=== PATIENT | female | born 1980 | race Caucasian/White ===

== ENCOUNTER 2019-07-09 13:13 | Emergency (ER) | payer OTHER ==
[~2019-07-09] VITALS: Ht 172.7 cm; Wt 65.8 kg
[~2019-07-09 13:13] MED LIST: MEDROL DOSEPAK4 MG PO; ROBAXIN-750750 MG PO
[2019-07-09 13:38] LABS: BASO % 0.4 % (0.0-1.0); EOS # 0.1 10*3/uL (0.0-0.4); HEMATOCRIT 44.8 % (37.0-47.0); HEMOGLOBIN 14.8 g/dl (12.0-16.0); LYMPH # 2.1 10*3/uL (1.3-4.4); MEAN CELL VOLUME 84.1 fl (81.0-99.0); MEAN CORPUSCULAR HGB 27.8 pg (27.0-31.0); MEAN PLATELET VOLUME 11.7 fl (9.6-12.3); MONO # 0.6 10*3/uL (0.1-1.0); MONO % 5.1 % (3.0-9.0); NEUT # 8.1 10*3/uL (2.3-7.9); PLATELET COUNT AUTOMATED 274 10*3/uL (130-400); RED BLOOD COUNT 5.33 10*6/uL (4.10-5.10); WHITE BLOOD COUNT 10.9 10*3/uL (4.8-10.8)
[2019-07-09 13:49] LABS: ACT PARTIAL THROMBO TIME 25.7 SECONDS (20.0-32.1); INTERNATIONAL NORM RATIO 0.9 (2.0-3.5)
[2019-07-09 13:52] LABS: ALBUMIN 3.9 gm/dl (3.1-4.5); ALKALINE PHOSPHATASE 115 U/L (45-117); BUN 15 mg/dl (7-24); CHLORIDE 109 mmol/L (98-107); CREATININE 0.89 mg/dL (0.55-1.02); POTASSIUM 3.9 mmol/L (3.5-5.1); SGOT/AST 15 IU/L (3-35); SGPT/ALT 43 U/L (12-78); SODIUM 139 mmol/L (136-145)
[2019-07-09 13:55] LABS: TROPONIN I < 0.015 ng/ml (<0.045)
[2019-07-09] MEDS ORDERED: NAPROSYN500 MG PO (15:47)
[2019-07-09] MEDS ORDERED: PREDNISONE20 M1 PO (15:47)
[2019-07-09] MEDS ORDERED: AMOXICILLIN500 M2 PO (15:47)
== END 2019-07-09 15:54 | disposition home or self-care (01) ==
LOC: ED 13:13
PROVIDERS: Emergency Medicine
DX: J20.9 Acute bronchitis, unspecified (principal); K02.9 Dental caries, unspecified; F17.200 Nicotine dependence, unspecified, uncomplicated; I11.0 Hypertensive heart disease with heart failure; I50.9 Heart failure, unspecified; Z88.8 Allergy status to other drugs, medicaments and biological substances; Z88.6 Allergy status to analgesic agent; Z91.048 Other nonmedicinal substance allergy status; Z79.899 Other long term (current) drug therapy

== ENCOUNTER 2020-06-08 11:28 | Emergency (ER) | payer SELFPAY ==
[~2020-06-08] VITALS: Wt 70.3 kg
[~2020-06-08 11:28] MED LIST changes: +AMOXICILLIN500 M2 PO; +NAPROSYN500 MG PO; +PREDNISONE20 M1 PO
[2020-06-08] MEDS ORDERED: ROBAXIN-750750 MG PO (13:14)
[2020-06-08] MEDS ORDERED: IBUPROFEN600 MG PO (13:14)
== END 2020-06-08 14:48 | disposition home or self-care (01) ==
LOC: ED 11:28
DX: S13.4XXA Sprain of ligaments of cervical spine, initial encounter (principal); S00.03XA Contusion of scalp, initial encounter; Z88.8 Allergy status to other drugs, medicaments and biological substances; Z88.6 Allergy status to analgesic agent; Y08.89XA Assault by other specified means, initial encounter; Y93.89 Activity, other specified; Y92.89 Other specified places as the place of occurrence of the external cause; Y99.8 Other external cause status

== ENCOUNTER 2021-07-03 19:12 | Emergency (ER) | payer OTHER ==
[~2021-07-03] VITALS: Ht 157.4 cm; Wt 77.1 kg
[~2021-07-03 19:12] MED LIST changes: +IBUPROFEN600 MG PO
[2021-07-03] MEDS ORDERED: METHOCARBAMOL500 M1 PO (21:37)
[2021-07-03] MEDS ORDERED: NAPROXEN250 MG PO (21:37)
== END 2021-07-03 21:53 | disposition home or self-care (01) ==
LOC: ED 19:12
DX: S39.012A Strain of muscle, fascia and tendon of lower back, initial encounter (principal); S80.11XA Contusion of right lower leg, initial encounter; M25.532 Pain in left wrist; Z88.8 Allergy status to other drugs, medicaments and biological substances; Z88.6 Allergy status to analgesic agent; Z90.89 Acquired absence of other organs; W17.89XA Other fall from one level to another, initial encounter; Y93.89 Activity, other specified; Y92.89 Other specified places as the place of occurrence of the external cause; Y99.8 Other external cause status

== ENCOUNTER 2021-11-26 20:46 | Emergency (ER) | payer OTHER ==
[~2021-11-26 20:46] MED LIST changes: +METHOCARBAMOL500 M1 PO; +NAPROXEN250 MG PO
[2021-11-26] MEDS ORDERED: CARVEDILOL25 MG PO (21:24)
[2021-11-26] MEDS ORDERED: HYDROXYZINE PAM25 M1 PO (21:25)
[2021-11-26] MEDS ORDERED: OMEPRAZOLE MAGN20 MG PO (21:25)
[2021-11-26] MEDS ORDERED: AMOXICILLIN875 MG PO (21:40)
== END 2021-11-26 21:50 | disposition home or self-care (01) ==
LOC: ED 20:46
DX: J02.9 Acute pharyngitis, unspecified (principal); Z88.6 Allergy status to analgesic agent; Z88.8 Allergy status to other drugs, medicaments and biological substances; Z79.899 Other long term (current) drug therapy; Z90.89 Acquired absence of other organs; F17.200 Nicotine dependence, unspecified, uncomplicated

== ENCOUNTER 2022-03-31 17:22 | Emergency (ER) | payer OTHER ==
[~2022-03-31] VITALS: Ht 157.4 cm; Wt 77.1 kg
[~2022-03-31 17:22] MED LIST changes: +AMOXICILLIN875 MG PO; +CARVEDILOL25 MG PO; +HYDROXYZINE PAM25 M1 PO; +OMEPRAZOLE MAGN20 MG PO
[2022-03-31 18:27] LABS: BASO # 0.1 10*3/uL (0.0-0.1); BASO % 0.7 % (0.0-1.0); EOS # 0.2 10*3/uL (0.0-0.4); EOS % 2.5 % (1.0-4.0); HEMATOCRIT 40.3 % (37.0-47.0); LYMPH # 3.1 10*3/uL (1.3-4.4); LYMPH % 31.7 % (27.0-41.0); MEAN CELL VOLUME 86.3 fl (81.0-99.0); MEAN CORPUSCULAR HGB 27.8 pg (27.0-31.0); MEAN CORPUSCULAR HGB CONC 32.3 g/dl (33.0-37.0); MEAN PLATELET VOLUME 11.7 fl (9.6-12.3); MONO # 0.7 10*3/uL (0.1-1.0); MONO % 6.8 % (3.0-9.0); NEUT # 5.6 10*3/uL (2.3-7.9); NEUT % 58.1 % (47.0-73.0); PLATELET COUNT AUTOMATED 266 10*3/uL (130-400); RED BLOOD COUNT 4.67 10*6/uL (4.10-5.10); RED CELL DISTRI WIDTH 14.2 % (0-14.5); WHITE BLOOD COUNT 9.6 10*3/uL (4.8-10.8)
[2022-03-31 18:35] LABS: BILIRUBIN Negative (Negative); BLOOD 3+ (Negative); CLARITY Clear (Clear); COLOR Yellow (Yellow); GLUCOSE Negative (Negative); KETONE Negative (Negative); LEUKO ESTERASE 3+ (Negative); NITRITE Negative (Negative); PH 5.5 (4.5-8.0); UROBILINOGEN 0.2 E.U./dl (0.0-1.0)
[2022-03-31 18:40] LABS: INTERNATIONAL NORM RATIO 0.9 (2.0-3.5)
[2022-03-31 18:46] LABS: ALKALINE PHOSPHATASE 106 U/L (45-117); BUN 16 mg/dl (7-24); CHLORIDE 108 mmol/L (98-107); CREATININE 0.96 mg/dL (0.55-1.02); POTASSIUM 4.2 mmol/L (3.5-5.1); SGOT/AST 11 IU/L (3-35); SGPT/ALT 22 U/L (12-78); SODIUM 140 mmol/L (136-145)
[2022-03-31 19:06] LABS: BACTERIA 2+; EPITHELIAL CELLS TNTC
[2022-03-31] MEDS ORDERED: AMOX-CLAV 875-1 EACH PO (19:59)
== END 2022-03-31 20:07 | disposition home or self-care (01) ==
LOC: ED 17:22
PROVIDERS: Physician Assistant
DX: N39.0 Urinary tract infection, site not specified (principal); A59.9 Trichomoniasis, unspecified; I50.9 Heart failure, unspecified; Z88.6 Allergy status to analgesic agent; Z88.8 Allergy status to other drugs, medicaments and biological substances; Z79.2 Long term (current) use of antibiotics; Z79.899 Other long term (current) drug therapy; Z90.89 Acquired absence of other organs; Z96.22 Myringotomy tube(s) status

== ENCOUNTER 2022-11-10 09:18 | Emergency (ER) | payer MEDICAID ==
[~2022-11-10] VITALS: Ht 157.4 cm; Wt 83.9 kg
[~2022-11-10 09:18] MED LIST changes: +AMOX-CLAV 875-1 EACH PO
[2022-11-10] MEDS ORDERED: METOPROLOL SUCC50 M1 PO (10:15)
[2022-11-10] MEDS ORDERED: HYDROXYZINE PAM50 MG PO (10:15)
[2022-11-10 10:18] LABS: BILIRUBIN Negative (Negative); BLOOD Negative (Negative); CLARITY Clear (Clear); COLOR Yellow (Yellow); GLUCOSE Negative (Negative); KETONE Negative (Negative); LEUKO ESTERASE Negative (Negative); NITRITE Negative (Negative); SPECIFIC GRAVITY 1.015 (1.001-1.030); UROBILINOGEN 0.2 E.U./dl (0.0-1.0)
[2022-11-10 10:32] LABS: RBC 0-2 rbc/hpf (0-2); WBC 0-2 wbc/hpf (0-5)
[2022-11-10 10:33] LABS: BACTERIA TRACE; EPITHELIAL CELLS 21-30
[2022-11-10] MEDS ORDERED: FLUCONAZOLE100 MG PO (10:39)
[2022-11-10] MEDS ORDERED: Motrin,Rufen800 MG PO (10:39)
== END 2022-11-10 10:53 | disposition home or self-care (01) ==
LOC: ED 09:18
PROVIDERS: Emergency Medicine
DX: L30.4 Erythema intertrigo (principal); D64.9 Anemia, unspecified; Z88.6 Allergy status to analgesic agent; Z88.5 Allergy status to narcotic agent; Z88.8 Allergy status to other drugs, medicaments and biological substances; Z90.89 Acquired absence of other organs; Z98.890 Other specified postprocedural states

== ENCOUNTER 2023-03-29 08:19 | Emergency (ER) | payer MEDICAID ==
[~2023-03-29] VITALS: Wt 78.9 kg
[~2023-03-29 08:19] MED LIST changes: +FLUCONAZOLE100 MG PO; +HYDROXYZINE PAM50 MG PO; +METOPROLOL SUCC50 M1 PO; +Motrin,Rufen800 MG PO
[2023-03-29] MEDS ORDERED: XANAX0.25 MG PO (11:30)
[2023-03-29] MEDS ORDERED: CYCLOBENZAPRINE5 M3 PO (11:30)
[2023-03-29] MEDS ORDERED: MEDROL DOSEPAK4 MG PO (11:30)
== END 2023-03-29 11:45 | disposition home or self-care (01) ==
LOC: ED 08:19
DX: T50.991A Poisoning by other drugs, medicaments and biological substances, accidental (unintentional), initial encounter (principal); G43.909 Migraine, unspecified, not intractable, without status migrainosus; D64.9 Anemia, unspecified; Z88.6 Allergy status to analgesic agent; Z88.5 Allergy status to narcotic agent; Z88.8 Allergy status to other drugs, medicaments and biological substances; Z90.89 Acquired absence of other organs; Z98.890 Other specified postprocedural states; Y92.89 Other specified places as the place of occurrence of the external cause

== ENCOUNTER 2023-06-05 11:19 | Emergency (ER) | payer SELFPAY ==
[~2023-06-05] VITALS: Ht 157.4 cm; Wt 75.3 kg
[~2023-06-05 11:19] MED LIST changes: +CYCLOBENZAPRINE5 M3 PO; +XANAX0.25 MG PO
[2023-06-05 12:19] LABS: BASO % 0.3 % (0.0-1.0); EOS # 0.1 10*3/uL (0.0-0.4); EOS % 1.3 % (1.0-4.0); HEMATOCRIT 42.4 % (37.0-47.0); LYMPH # 1.8 10*3/uL (1.3-4.4); LYMPH % 28.1 % (27.0-41.0); MEAN CELL VOLUME 83.5 fl (81.0-99.0); MEAN CORPUSCULAR HGB 26.8 pg (27.0-31.0); MEAN CORPUSCULAR HGB CONC 32.1 g/dl (33.0-37.0); MONO # 0.5 10*3/uL (0.1-1.0); MONO % 8.6 % (3.0-9.0); NEUT # 3.9 10*3/uL (2.3-7.9); NEUT % 61.4 % (47.0-73.0); PLATELET COUNT AUTOMATED 205 10*3/uL (130-400); RED BLOOD COUNT 5.08 10*6/uL (4.10-5.10); RED CELL DISTRI WIDTH 13.9 % (0-14.5); WHITE BLOOD COUNT 6.3 10*3/uL (4.8-10.8)
[2023-06-05 12:41] LABS: ALKALINE PHOSPHATASE 119 U/L (46-116); BUN 6 mg/dl (9-23); CHLORIDE 107 mmol/L (98-107); POTASSIUM 3.4 mmol/L (3.4-5.1); SGPT/ALT 29 U/L (5-49); TOTAL PROTEIN 7.2 gm/dL (6.0-8.0)
[2023-06-05] MEDS ORDERED: TAMIFLU 75MG CA75 MG PO (13:00)
== END 2023-06-05 13:00 | disposition home or self-care (01) ==
LOC: ED 11:19
PROVIDERS: Nurse Practitioner Family
DX: J10.1 Influenza due to other identified influenza virus with other respiratory manifestations (principal); D64.9 Anemia, unspecified; Z88.8 Allergy status to other drugs, medicaments and biological substances; Z88.5 Allergy status to narcotic agent; Z90.89 Acquired absence of other organs; Z98.890 Other specified postprocedural states; Z20.822 Contact with and (suspected) exposure to COVID-19

== ENCOUNTER 2024-03-07 11:48 | Emergency (ER) | payer MEDICAID ==
[~2024-03-07] VITALS: Ht 157.4 cm; Wt 78.9 kg
[~2024-03-07 11:48] MED LIST changes: +TAMIFLU 75MG CA75 MG PO
[2024-03-07] MEDS ORDERED: MEPERIDINE HYDROCHLORIDE 25 MG/1 ML VIAL IM ONE (13:00)
[2024-03-07] MEDS ORDERED: CYCLOBENZAPRINE10 MG PO (13:00)
[2024-03-07] MEDS ORDERED: Promethazine Hydrochloride 25 MG/ML VIAL IM ONE (13:05)
== END 2024-03-07 15:05 | disposition home or self-care (01) ==
LOC: ED 11:48
DX: S29.012A Strain of muscle and tendon of back wall of thorax, initial encounter (principal); F41.9 Anxiety disorder, unspecified; G43.909 Migraine, unspecified, not intractable, without status migrainosus; I10 Essential (primary) hypertension; D64.9 Anemia, unspecified; F17.200 Nicotine dependence, unspecified, uncomplicated; Z88.8 Allergy status to other drugs, medicaments and biological substances; Z88.5 Allergy status to narcotic agent; Z90.89 Acquired absence of other organs; Z98.890 Other specified postprocedural states; X50.0XXA Overexertion from strenuous movement or load, initial encounter; Y93.89 Activity, other specified; Y92.59 Other trade areas as the place of occurrence of the external cause; Y99.0 Civilian activity done for income or pay

== ENCOUNTER 2024-06-04 17:07 | Emergency (ER) | payer MEDICAID ==
[~2024-06-04] VITALS: Wt 79.4 kg
[~2024-06-04 17:07] MED LIST changes: +CYCLOBENZAPRINE10 MG PO
[2024-06-04] MEDS ORDERED: AMOXICILLIN 500 MG CAP PO ONE (17:20)
[2024-06-04] MEDS ORDERED: AMOXICILLIN500 M3 PO (17:20)
== END 2024-06-04 17:49 | disposition home or self-care (01) ==
LOC: ED 17:07
DX: K02.9 Dental caries, unspecified (principal); I10 Essential (primary) hypertension; K21.9 Gastro-esophageal reflux disease without esophagitis; F41.9 Anxiety disorder, unspecified; D64.9 Anemia, unspecified; F17.200 Nicotine dependence, unspecified, uncomplicated; Z88.8 Allergy status to other drugs, medicaments and biological substances; Z88.5 Allergy status to narcotic agent; Z90.89 Acquired absence of other organs; Z98.890 Other specified postprocedural states

== ENCOUNTER 2024-06-18 12:33 | Emergency (ER) | payer MEDICAID ==
[~2024-06-18] VITALS: Ht 157.4 cm; Wt 77.1 kg
[~2024-06-18 12:33] MED LIST changes: +AMOXICILLIN500 M3 PO
[2024-06-18] MEDS ORDERED: Promethazine Hydrochloride 25 MG/ML VIAL IV ONE (12:45)
[2024-06-18] MEDS ORDERED: SODIUM CHLORIDE 0.9% 1,000 ML IV ONE (12:50)
[2024-06-18] MEDS ORDERED: diphenhydrAMINE hydrochloride 50 MG/ML VIAL IV ONE (12:50)
[2024-06-18] MEDS ORDERED: Ketorolac Tromethamine 15 MG/ML VIAL IV ONE (12:50)
[2024-06-18] MEDS ORDERED: ACETAMINOPHEN 325 MG TAB PO ONE (12:50)
[2024-06-18] MEDS ORDERED: Metoclopramide Hydrochloride 10 MG/2 ML VIAL IV ONE (12:50)
[2024-06-18] MEDS ORDERED: Dexamethasone Sodium Phospha 20 MG/5 ML VIAL IV ONE (12:50)
[2024-06-18] MEDS ORDERED: PREDNISONE50 MG PO (14:40)
== END 2024-06-18 14:47 | disposition home or self-care (01) ==
LOC: ED 12:33
DX: G44.209 Tension-type headache, unspecified, not intractable (principal); R11.0 Nausea; I11.0 Hypertensive heart disease with heart failure; I50.9 Heart failure, unspecified; D64.9 Anemia, unspecified; Z88.8 Allergy status to other drugs, medicaments and biological substances; Z88.5 Allergy status to narcotic agent; Z90.49 Acquired absence of other specified parts of digestive tract; Z98.890 Other specified postprocedural states

== ENCOUNTER 2024-07-25 19:44 | Emergency (ER) | payer OTHER ==
[~2024-07-25] VITALS: Ht 157.4 cm; Wt 77.1 kg
[~2024-07-25 19:44] MED LIST changes: +PREDNISONE50 MG PO
[2024-07-25] MEDS ORDERED: PENICILLIN V POTASSIUM 500 MG TAB PO ONE (20:35)
[2024-07-25] MEDS ORDERED: Ketorolac Tromethamine 30 MG/ML VIAL IM ONE (20:35)
[2024-07-25] MEDS ORDERED: PENICILLIN VK500 MG PO (21:07)
== END 2024-07-25 21:17 | disposition home or self-care (01) ==
LOC: ED 19:44
DX: K02.9 Dental caries, unspecified (principal); H61.21 Impacted cerumen, right ear; D64.9 Anemia, unspecified; I11.0 Hypertensive heart disease with heart failure; I50.9 Heart failure, unspecified; Z88.5 Allergy status to narcotic agent; Z88.8 Allergy status to other drugs, medicaments and biological substances; Z90.89 Acquired absence of other organs; Z98.890 Other specified postprocedural states

== ENCOUNTER 2024-10-11 10:10 | Emergency (ER) | payer OTHER ==
[~2024-10-11] VITALS: Ht 157.4 cm; Wt 80.9 kg
[~2024-10-11 10:10] MED LIST changes: +PENICILLIN VK500 MG PO
[2024-10-11 10:52] LABS: BILIRUBIN Negative (Negative); BLOOD 2+ (Negative); CLARITY Clear (Clear); COLOR Yellow (Yellow); GLUCOSE Negative (Negative); KETONE Negative (Negative); LEUKO ESTERASE 2+ (Negative); NITRITE Negative (Negative); PH 6.5 (4.5-8.0); SPECIFIC GRAVITY <= 1.005 (1.001-1.030); UROBILINOGEN 0.2 E.U./dl (0.0-1.0)
[2024-10-11 11:10] LABS: BACTERIA TRACE; RBC 0-2 rbc/hpf (0-2); WBC 16-20 wbc/hpf (0-5)
[2024-10-11] MEDS ORDERED: MACROBID100 M1 PO (11:52)
== END 2024-10-11 11:38 | disposition home or self-care (01) ==
LOC: ED 10:10
PROVIDERS: Emergency Medicine
DX: N39.0 Urinary tract infection, site not specified (principal); Z79.899 Other long term (current) drug therapy; Z88.5 Allergy status to narcotic agent; Z88.8 Allergy status to other drugs, medicaments and biological substances; Z90.89 Acquired absence of other organs; Z98.890 Other specified postprocedural states

== ENCOUNTER 2025-05-31 18:07 | Emergency (ER) | payer OTHER ==
[~2025-05-31] VITALS: Wt 79.4 kg
[~2025-05-31 18:07] MED LIST changes: +MACROBID100 M1 PO
[2025-05-31] MEDS ORDERED: Amoxicillin/Clavulanate Pota 875 MG TAB PO ONE (18:25)
[2025-05-31] MEDS ORDERED: FLUONAZOLE150 M1 PO (18:31)
[2025-05-31] MEDS ORDERED: AMOX-CLAV 875-1 EACH PO (18:31)
== END 2025-05-31 18:59 | disposition home or self-care (01) ==
LOC: ED 18:07
DX: K02.9 Dental caries, unspecified (principal); Z90.89 Acquired absence of other organs; Z88.5 Allergy status to narcotic agent; Z88.8 Allergy status to other drugs, medicaments and biological substances; Z87.440 Personal history of urinary (tract) infections